=== PATIENT | female | born 2000 | race Caucasian/White ===

== ENCOUNTER 2023-07-03 09:29 | Outpatient (CLI) | payer OTHER | END 2023-07-03 09:42 | disposition home or self-care (01) | LOC: SONOGRAMA 09:29 → EDBD 09:29 → SONOGRAMA 09:42 | DX: R10.2 Pelvic and perineal pain (principal); N97.0 Female infertility associated with anovulation; N83.291 Other ovarian cyst, right side; R74.01 Elevation of levels of liver transaminase levels; A56.02 Chlamydial vulvovaginitis; E06.3 Autoimmune thyroiditis; E03.8 Other specified hypothyroidism ==